=== PATIENT | male | born 1985 | race Caucasian/White ===

== ENCOUNTER 2017-06-29 08:47 | Emergency (ER) | payer OTHER ==
[~2017-06-29 08:47] MED LIST: SUCCINYLCHOLINE CHLORIDE VIAL 200 MG/10 ML VIAL IV ONE
[2017-06-29] MEDS: MIDAZOLAM (PF) 1 MG/ML 5 ML VIAL IV STA ×2 (08:47→09:04)
[2017-06-29] MEDS ORDERED: RX INFO: IV CONTRAST WAS GIVEN 1 EACH MISC MISCELLANE PRN (08:51)
[2017-06-29 09:12] LABS: HCT 45.9 % (39.0-53.0); HGB 14.4 gm/dL (13.0-17.5); Hypochromasia Slight; MCH 26.2 pg (25.0-35.0); MCHC 31.4 g/dL (31.0-37.0); MCV 83.4 fL (80.0-100.0); Mean Platelet Volume 7.5; Platelet Count 530 k/uL (150-450); RBC 5.51 m/uL (4.30-5.90); WBC 24.5 k/uL (3.8-10.6)
[2017-06-29] MEDS ORDERED: DIPH,PERTUS(ACELL)TETVAC-LF 0.5 ML VIAL IM ONE (09:15)
[2017-06-29] MEDS ORDERED: PROPOFOL 1,000 MG in EMPTY BAG 1 BAG IV SCH (09:15)
[2017-06-29] MEDS ORDERED: PROPOFOL 10 MG/ML 20 ML VIAL IV SCH (09:15)
[2017-06-29] MEDS ORDERED: PROPOFOL 10 MG/ML 20 ML VIAL IV ONE (09:15)
[2017-06-29 09:16] LABS: INR 1.1 (<1.2); Prothrombin Time 10.4 sec (9.0-12.0)
[2017-06-29] MEDS ORDERED: ceFAZolin 1,000 MG in DEXTROSE/WATER 1 50ML.BAG IVPB STA (09:16)
[2017-06-29 09:19] LABS: ALT 334 U/L (21-72); AST 250 U/L (17-59); Albumin 4.3 g/dL (3.5-5.0); Alcohol <10 mg/dL; Alkaline Phosphatase 85 U/L (38-126); Amylase 46 U/L (30-110); Anion Gap 26 mmol/L; Blood Urea Nitrogen 16 mg/dL (9-20); Calcium 9.5 mg/dL (8.4-10.2); Carbon Dioxide 16 mmol/L (22-30); Chloride 102 mmol/L (98-107); Glucose 230 mg/dL (74-99); Potassium 4.3 mmol/L (3.5-5.1); Sodium 144 mmol/L (137-145); Total Bilirubin 0.4 mg/dL (0.2-1.3); Total Protein 7.7 g/dL (6.3-8.2)
[2017-06-29 09:26] LABS: Band Neutrophils % 1 %; Monocytes # (M) 1.47 k/uL (0-1.0); Neutrophils % (M) 62 %; Nucleated Red Blood Cells 0 /100 WBC (0-0); Total Cells Counted 100
[2017-06-29 09:35] LABS: ABG Base Excess -4.5 mmol/L; ABG HCO3 22 mmol/L (21-25); ABG Oxygen Saturation 99.8 % (94-97); ABG PCO2 43 mmHg (35-45); ABG PH 7.31 (7.35-7.45); ABG PO2 >400 mmHg (83-108); ABG TCO2 23 mmol/L (19-24)
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
[2017-06-29 09:51] LABS: Creatine Kinase MB 22.4 ng/mL (0.0-2.4)
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
[2017-06-29 09:52] LABS: Troponin I 2.06 ng/mL (0.000-0.034)
[2017-06-29] MEDS ORDERED: LORazepam 2 MG/ML INJ IM STA (10:00)
[2017-06-29] MEDS ORDERED: LORazepam 2 MG/ML INJ IV STA (10:00)
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
[2017-06-29] MEDS ORDERED: MORPHINE SULFATE 4MG/4ML SYRG IVP STA (10:02)
[2017-06-29] MEDS ORDERED: MORPHINE SULFATE 4MG/4ML SYRG ONE (10:02)
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
--- NOTE | 2017-06-29 10:09 | XR ---
EXAMINATION TYPE: XR chest 1V portable DATE OF EXAM: 06/29/2017 COMPARISON: Prior chest x-ray unavailable, exam correlated to chest abdomen pelvis CT same day HISTORY: Trauma and pain TECHNIQUE: frontal view of the chest is obtained on 2 images. FINDINGS: Endotracheal tube is overlying the tracheal air column. There are overlying cardiac leads. No evident pneumothorax or pleural effusion. Patient's known rib fractures not well seen. Cardiomedi astinal silhouette, pulmonary vascularity and newton within normal limits. IMPRESSION: Endotracheal tube is overlying appropriate position. Some limitations as described.
[2017-06-29 10:11] LABS: Appearance,Urine Clear (Clear); Bilirubin,Urine Negative (Negative); Blood,Urine Large (Negative); Color,Urine Yellow; Glucose,Urine (UA) Negative (Negative); Ketones,Urine Negative (Negative); Leukocyte Esterase,Urine Negative (Negative); Mucus,Urine Rare /hpf; Nitrite,Urine Negative (Negative); PH, Urine 6.5 (5.0-8.0); Protein,Urine 1+ (Negative); RBC,Urine >182 /hpf (0-5); Sperm,Urine Occasional /hpf; Urobilinogen,Urine <2.0 mg/dL (<2.0); WBC,Urine 18 /hpf (0-5)
--- NOTE | 2017-06-29 10:11 | XR ---
Pelvis HISTORY: Trauma and pain Single frontal view of the pelvis submitted Correlation to CT chest abdomen pelvis same date Patient is rotated slightly. Patient's right posterior fracture dislocation of the hip, acetabular fr acture which is comminuted on the right are noted, largest posterior fragment present posterior to th e right hemipelvis. Question overlying artifacts the left hemipelvis and proximal lower extremity. IMPRESSION: Fractures of the acetabulum, fracture or dislocation of the right hip.
--- NOTE | 2017-06-29 10:14 | XR ---
Right femur HISTORY: Trauma and pain Frontal view of the right femur on 2 images correlated to pelvis same date Fracture or dislocation of the right hip is noted as described on additional exams same date. No evid ent fracture of the femur. IMPRESSION: Fracture dislocation right hip, frontal view only
--- NOTE | 2017-06-29 10:16 | XR ---
AP pelvis HISTORY: Post reduction frontal view of the pelvis correlated to prior exam same date at earlier time. There is been interval reduction of patient's right hip dislocation. Fracture fragments are noted abo ut the right hip, acetabular fracture is nondisplaced medially. There is some overlying artifacts on the left. Contrast are present within the renal collecting systems, ureters and bladder. Transverse p rocess fractures on the left and well seen. IMPRESSION: Interval reduction of patient's hip dislocation on the right. Additional findings above.
[2017-06-29 10:19] LABS: Amphetamine Screen,Urine Detected (NotDetected); Barbiturate Screen,Urine Not Detected (NotDetected); Benzodiazepines Screen,Urine Not Detected (NotDetected); Cocaine Screen,Urine Not Detected (NotDetected); Methadone Screen, Urine Not Detected (NotDetected); Opiate Screen,Urine Detected (NotDetected); Oxycodone Screen, Urine Not Detected (NotDetected); Phencyclidine Screen,Urine Not Detected (NotDetected); Tricyclic Antidepressant,Urine Not Detected (NotDetected); Urn Cannabinoid Scrn Not Detected (NotDetected)
[2017-06-29 10:35] VITALS: RESP 20
[2017-06-29 10:56] LABS: Specific Gravity,Urine 1.049 (1.001-1.035)
[2017-06-29 12:06] VITALS: BP 125/76; PULSE 113; TEMP 101.8
[2017-06-29] MEDS ORDERED: PROPOFOL 10 MG/ML 100 ML VIAL IV ONE (12:10)
[2017-06-30 08:13] LABS: Lipase 114 U/L (23-300)
--- NOTE | 2017-07-09 00:57 | CDI ---
Dear Jan Espinoza MD: Please do addendum size of the chin laceration and also repair if performed. Thank you, Altagracia Bo, Cable Machine Operator. If you have any questions, please contact Return To Vendor at [phone]. MTDD
== END 2017-06-29 10:37 ==
LOC: EC 08:47 → MERGE 08:47 → EDBD 08:47 → EC 10:37
DX: S32.401A Unspecified fracture of right acetabulum, initial encounter for closed fracture (principal); S73.014A Posterior dislocation of right hip, initial encounter; S22.49XA Multiple fractures of ribs, unspecified side, initial encounter for closed fracture; S02.40DA Maxillary fracture, left side, initial encounter for closed fracture; S32.019A Unspecified fracture of first lumbar vertebra, initial encounter for closed fracture; S32.029A Unspecified fracture of second lumbar vertebra, initial encounter for closed fracture; S32.039A Unspecified fracture of third lumbar vertebra, initial encounter for closed fracture; S32.049A Unspecified fracture of fourth lumbar vertebra, initial encounter for closed fracture; S06.6X9A Traumatic subarachnoid hemorrhage with loss of consciousness of unspecified duration, initial encounter; S01.81XA Laceration without foreign body of other part of head, initial encounter; S27.329A Contusion of lung, unspecified, initial encounter; S26.91XA Contusion of heart, unspecified with or without hemopericardium, initial encounter; R00.0 Tachycardia, unspecified; R40.2432 Glasgow coma scale score 3-8, at arrival to emergency department; Z23 Encounter for immunization; Z53.8 Procedure and treatment not carried out for other reasons; V49.50XA Passenger injured in collision with unspecified motor vehicles in traffic accident, initial encounter; Y92.410 Unspecified street and highway as the place of occurrence of the external cause
CPT/HCPCS: 99291 ×2; 99292 ×2; 31500 ×2; 27250 ×2; 96365 ×2; 96375 ×3; 90471 ×2; 36415; 36600; 94002; 93005; 86900; 86901; 80053; 82150; 82550; 82553; 82805; 83605; 83690; 84484; 85025; 85610; 85730; 86850; 81001; 80306; 80320; 72170; 73551; 71045; 72125; 70450; 71260; 74177; 90715; J0330; J2060; J2250; J0690; J2704 ×2; Q9967; J2270

== ENCOUNTER 2018-12-12 23:00 | Emergency (ER) | payer OTHER ==
[2018-12-12 23:10] VITALS: RESP 18
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
[2018-12-12 23:53] LABS: Anisocytosis Slight; Basophils # (A) 0.1 k/uL (0-0.2); Basophils % (A) 1 %; Eosinophils # (A) 0.3 k/uL (0-0.7); Eosinophils % (A) 4 %; HCT 45.5 % (39.0-53.0); HGB 15.8 gm/dL (13.0-17.5); Lymphocytes # (A) 2.2 k/uL (1.0-4.8); Lymphocytes % (A) 24 %; MCH 27.7 pg (25.0-35.0); MCHC 34.7 g/dL (31.0-37.0); MCV 79.9 fL (80.0-100.0); Mean Platelet Volume 7.2; Monocytes # (A) 0.6 k/uL (0-1.0); Monocytes % (A) 6 %; Neutrophils # (A) 5.6 k/uL (1.3-7.7); Neutrophils % (A) 63 %; Platelet Count 287 k/uL (150-450); RDW 16.6 % (11.5-15.5); WBC 8.9 k/uL (3.8-10.6)
--- NOTE | 2018-12-12 23:56 | CT ---
EXAMINATION TYPE: CT abdomen pelvis wo con DATE OF EXAM: 12/12/2018 COMPARISON: 06/29/2017 HISTORY: right flank pain CT DLP: 1273.4 mGycm Automated exposure control for dose reduction was used. TECHNIQUE: Helical acquisition of images was performed from the lung bases through the pelvis. FINDINGS: There is minimal interstitial linear density in the lung bases consistent with subsegmental atelectas is. There is normal size liver. Gallbladder is somewhat contracted. There is no pancreatic mass. Sple en appears normal. Stomach appears normal. The bile ducts are not dilated. There is no adrenal mass. Kidneys have normal size. There is no hydronephrosis. Ureters are not dilat ed. There is no retroperitoneal adenopathy. Bladder distends smoothly. There is no inguinal hernia. T here is no free fluid in the pelvis. Appendix appears normal. There is no mesenteric edema. There is no ascites or free air. There is no sign of a bowel obstruction. There is small umbilical he rnia that contains fat. Lumbar spine is intact. The bony pelvis is intact. There is bone island in th e left femoral head. There is previous surgery on the right acetabulum. IMPRESSION: NO SIGN OF ACUTE ABDOMEN AND PELVIS. NORMAL APPENDIX. NO RENAL STONE OR OBSTRUCTION. THERE IS RECONST RUCTION OF THE FRACTURED ACETABULUM COMPARED TO OLD EXAM.
[2018-12-13 00:02] LABS: ALT 165 U/L (21-72); AST 61 U/L (17-59); African American GFR (CKD) >90 (>60 ml/min/1.73 sqM); Albumin 3.9 g/dL (3.5-5.0); Alkaline Phosphatase 55 U/L (38-126); Anion Gap 10 mmol/L; Blood Urea Nitrogen 16 mg/dL (9-20); Calcium 9.1 mg/dL (8.4-10.2); Carbon Dioxide 22 mmol/L (22-30); Chloride 109 mmol/L (98-107); Glucose 112 mg/dL (74-99); Potassium 4.2 mmol/L (3.5-5.1); Sodium 141 mmol/L (137-145); Total Bilirubin 0.3 mg/dL (0.2-1.3); Total Protein 7.2 g/dL (6.3-8.2)
[2018-12-13 00:30] LABS: Appearance,Urine Clear (Clear); Bilirubin,Urine Negative (Negative); Blood,Urine Negative (Negative); Color,Urine Yellow; Glucose,Urine (UA) Negative (Negative); Ketones,Urine Negative (Negative); Leukocyte Esterase,Urine Negative (Negative); Nitrite,Urine Negative (Negative); PH, Urine 5.5 (5.0-8.0); Protein,Urine Trace (Negative); Specific Gravity,Urine 1.031 (1.001-1.035)
[2018-12-13 01:03] VITALS: BP 131/91; PULSE 74; TEMP 98.6
== END 2018-12-13 01:03 | disposition home or self-care (01) ==
LOC: EC 23:00
DX: M54.5 Low back pain (principal); R10.9 Unspecified abdominal pain; F31.9 Bipolar disorder, unspecified; F41.9 Anxiety disorder, unspecified; Z79.899 Other long term (current) drug therapy
CPT/HCPCS: 36415; 74176; 80053; 81003; 83690; 85025; 99284

== ENCOUNTER 2022-07-02 01:40 | Emergency (ER) | payer OTHER ==
[2022-07-02 01:48] VITALS: TEMP 98.1
[2022-07-02] MEDS ORDERED: SODIUM CHLORIDE 0.9% 1,000 ML IV STA (02:00)
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
[2022-07-02 02:26] LABS: Basophils # (A) 0.1 k/uL (0-0.2); Basophils % (A) 1 %; Eosinophils # (A) 0.4 k/uL (0-0.7); Eosinophils % (A) 4 %; HCT 50.6 % (39.0-53.0); Lymphocytes # (A) 2.9 k/uL (1.0-4.8); Lymphocytes % (A) 32 %; MCH 28.7 pg (25.0-35.0); MCHC 33.6 g/dL (31.0-37.0); MCV 85.4 fL (80.0-100.0); Mean Platelet Volume 7.9; Monocytes # (A) 0.6 k/uL (0-1.0); Monocytes % (A) 7 %; Neutrophils # (A) 4.9 k/uL (1.3-7.7); Neutrophils % (A) 55 %; Platelet Count 245 k/uL (150-450); RBC 5.92 m/uL (4.30-5.90); WBC 8.9 k/uL (3.8-10.6)
[2022-07-02 02:35] LABS: ALT 517 U/L (4-49); AST 279 U/L (17-59); African American GFR (CKD) >90 (>60 ml/min/1.73 sqM); Albumin 4.2 g/dL (3.5-5.0); Alkaline Phosphatase 76 U/L (38-126); Amylase 55 U/L (30-110); Anion Gap 8 mmol/L; Blood Urea Nitrogen 18 mg/dL (9-20); Calcium 8.9 mg/dL (8.4-10.2); Carbon Dioxide 26 mmol/L (22-30); Chloride 105 mmol/L (98-107); Glucose 121 mg/dL (74-99); Lipase 141 U/L (23-300); Non-African American GFR(CKD) >90 (>60 ml/min/1.73 sqM); Sodium 139 mmol/L (137-145); Total Bilirubin 0.6 mg/dL (0.2-1.3); Total Protein 7.4 g/dL (6.3-8.2)
[2022-07-02 02:36] LABS: Potassium 4.9 mmol/L (3.5-5.1)
[2022-07-02 03:36] VITALS: BP 129/91; PULSE 92; RESP 21
== END 2022-07-02 03:48 | disposition home or self-care (01) ==
LOC: EC 01:40
DX: R42 Dizziness and giddiness (principal); R74.01 Elevation of levels of liver transaminase levels; I10 Essential (primary) hypertension; F31.9 Bipolar disorder, unspecified; F41.9 Anxiety disorder, unspecified; Z20.822 Contact with and (suspected) exposure to COVID-19; Z87.891 Personal history of nicotine dependence; Z79.899 Other long term (current) drug therapy
CPT/HCPCS: 36415; 80053; 82140; 82150; 83690; 85025; 87636; 96360; 99284